=== PATIENT | male | born 1985 | race African-American/Black ===

== ENCOUNTER 2017-07-04 07:59 | Emergency (ER) | payer OTHER ==
[~2017-07-04] VITALS: Ht 182.9 cm; Wt 66.0 kg
[2017-07-04] MEDS: SODIUM CHLORIDE 0.9% 1,000 ML IV ONE (09:21)
[2017-07-04] MEDS: KETOROLAC 30MG/ML VIAL IV ONE (09:27)
[2017-07-04] MEDS: METHYLPREDNISOLONE SOD SUCC 125 MG/2 ML VIAL IV STA (09:27)
[2017-07-04] MEDS: CLINDAMYCIN 600 MG in DEXTROSE 5% WATER 50 ML IV ONE (09:30)
[2017-07-04] MEDS ORDERED: CLINDAMYCIN 600MG PREMIX 50 ML IV ONE (10:00)
[2017-07-04 11:50] VITALS: BP 124/76
== END 2017-07-04 12:03 | disposition home or self-care (01) ==
LOC: ER 08:12
DX: J03.90 Acute tonsillitis, unspecified (principal); F12.10 Cannabis abuse, uncomplicated
CPT/HCPCS: 96365; 96375; 99285; J1885; J2930; J3490; J7030; Z7610; J7060

== ENCOUNTER 2017-07-06 16:02 | Emergency (ER) | payer OTHER ==
[~2017-07-06] VITALS: Ht 182.9 cm; Wt 71.0 kg
[2017-07-06 16:17] VITALS: BP 134/87
== END 2017-07-06 17:30 | disposition left against medical advice (07) ==
LOC: ER 16:38
DX: J02.9 Acute pharyngitis, unspecified (principal); Z53.21 Procedure and treatment not carried out due to patient leaving prior to being seen by health care provider